=== PATIENT | male | born 1970 | race Caucasian/White ===

== ENCOUNTER 2017-05-11 08:05 | Outpatient (CLI) | payer OTHER ==
[2017-05-11 08:51] LABS: eGFR (African) > 60; eGFR (Non-African) > 60
== END 2017-05-11 09:34 ==
LOC: LAB 08:05
PROVIDERS: ATTEND Physician Assistant
DX: E29.1 Testicular hypofunction (principal); Z00.00 Encounter for general adult medical examination without abnormal findings; Z13.6 Encounter for screening for cardiovascular disorders; N52.9 Male erectile dysfunction, unspecified; R53.82 Chronic fatigue, unspecified
CPT/HCPCS: 36415; 80053; 80061; 84403